=== PATIENT | female | born 1965 | race Caucasian/White ===

== ENCOUNTER 2024-12-20 09:53 | Outpatient (AMB) | payer OTHER, SELFPAY ==
[2024-12-20 10:19] VITALS: BP 120/62; PULSE 57; O2SAT 97; BMI 41.7
--- NOTE | 2024-12-20 10:19 | A.OFFVIS_ITS ---
Vital Signs 12/20/24 10:19 Height 5 ft 7 in Weight 266 lb BMI 41.7 BP 120/62 Blood Pressure Location Lt brachial Position Sitting Pulse 57 Pulse Source Pulse Oximeter Pulse Oximetry (%) 97 Oxygen Delivery Method Room Air Intake Visit Reasons: Hand Arth Intake Note: Patient presents with left and pain today. She was last seen at [facility] on 08/2022 for her knee pain. Allergies Sulfa (Sulfonamide Antibiotics) Allergy (Mild, Verified 12/20/24 10:25) Rash HPI HPI Hand Arth: Details: Left CMC pain aggravated with activity for the last few weeks. 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 She has not self medicated. If she has had a lot of activity during the day, she has pain at rest. Denies pain in right hand. [facility] Medical History (Updated 12/20/24 @ 11:52 by Luis Reynoso MD) Plantar fasciitis of right foot Heel spur delivery delivered Osteoarthritis CRISTO positive Surgical History (Updated 12/20/24 @ 10:29 by Kiana Gandhi CMA) S/P bilateral breast reduction H/O knee surgery Social History (Updated 12/20/24 @ 10:29 by Kiana Gandhi CMA) Household Members: Family Alcohol intake: never Patient Tobacco Use Status: Never used Tobacco Review of Systems Const All systems reviewed & are unremarkable except as noted in HPI and below Physical Exam Vital Signs: Last Vital Signs Pulse 57 12/20/24 10:19 BP 120/62 12/20/24 10:19 Pulse Ox 97 12/20/24 10:19 Oxygen Delivery Method Room Air 12/20/24 10:19 BMI result Body Mass Index 41.7 Const Other: General: Comfortable Skin: No lesions seen MSK: Tender left CMC with slight squaring. No effusion present. No other joints are tender in hands. 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 Assessment & Plan Assessment & Plan (1) Osteoarthritis of carpometacarpal (CMC) joint of left thumb: Comment: Clinical diagnosis. We discussed diagnosis and management. Code(s): M18.12 - Unilateral primary osteoarthritis of first carpometacarpal joint, left hand Category: Medical Qualifiers: Osteoarthritis type: primary Qualified Code(s): M18.12 - Unilateral primary osteoarthritis of first carpometacarpal joint, left hand Plan: X-ray left hand ordered Apply diclofenac gel 1% to affected area every 4-6 hours as needed I have asked her to apply ice to the affected area twice a day Baseline labs ordered Patient will call office if pain increases. I will then prescribed prescription celecoxib 200 mg twice a day until follow up appointment. CMC splint ordered. Prescription given to patient. OT ordered to improve hand strength Return to clinic in 3 months Orders: Orders XR hand LT min 3V Today M18.12 - Unilateral primary osteoarthritis of first carpometacarpal joint, left hand Aspartate Amino Transferase Today M18.12 - Unilateral primary osteoarthritis of first carpometacarpal joint, left hand Complete Blood Count Auto Diff Today M18.12 - Unilateral primary osteoarthritis of first carpometacarpal joint, left hand OT Evaluation and Treatment Today M18.12 - Unilateral primary osteoarthritis of first carpometacarpal joint, left hand Alanine Aminotransferase Today M18.12 - Unilateral primary osteoarthritis of first carpometacarpal joint, left hand Creatinine Today M18.12 - Unilateral primary osteoarthritis of first carpometacarpal joint, left hand Medications: New arm brace (Wrist Brace) As directed Dx: Left CMC osteoarthritis CMC splint 1 ea 0RF diclofenac sodium 1% (Arthritis Pain (diclofenac)) apply to affected every 4-6 hours 2 grams topical QID 100 grams 5RF Coding Level of Care Code Est Pt Level 3 (67126) Complex EM visit Add On G2211 Diagnoses Primary osteoarthritis of first carpometacarpal joint of left hand M18.12 Osteoarthritis type: primary
== END 2024-12-20 11:02 | disposition home or self-care (01) ==
PROVIDERS: PCP Family Medicine; Visit Provider Internal Medicine Rheumatology
DX: M18.12 Unilateral primary osteoarthritis of first carpometacarpal joint, left hand (principal)
CPT/HCPCS: 99213

== ENCOUNTER 2024-12-20 09:53 | Outpatient (REF) | payer OTHER, SELFPAY ==
--- OUTSIDE RECORDS SUMMARY | 2024-12-20 13:22 | XMS_ITS ---
Author Name [facility] Organization Unknown History of Medication Use Medication Directions Dispensed Refills Start Date End Date Stat us celecoxib (CeleBREX) 200 MG capsule TAKE 1 CAPSULE BY MOUTH DAILY NEEDED FOR PAIN. 10/24/2023 12/07/2023 aborted amLODIPine-valsartan (EXFORGE) 5-320 mg per tablet TAKE 1 TABLET BY MOUTH EVERY DAY 05/19/2024 11/16/2024 active gabapentin (NEURONTIN) 100 MG capsule TAKE 1 CAPSULE BY MOUTH THREE TIMES A DAY 08/09/2023 12/07/2023 aborted triamcinolone (KENALOG) 0.1 % cream Apply topically 2 (two) times a day. 03/17/2022 active Acetaminophen (TYLENOL ARTHRITIS EXT RELIEF PO) Take by mouth. 12/07/2023 aborte d amoxicillin (AMOXIL) 500 mg capsule DIRECTED 4 TABS 1 HR PRIOR DENTAL APPT 07/14/2023 active Problems Problem Status Onset Date Problem Type Date of Resolution Source Primary hypertension active EncounterDiagnosisAct CTTHNE MG Medication monitoring encounter active EncounterDiagnosisAct CTTHNE MG Immunizations Vaccine Date Source Lot Number Status Soysuper SARS-CoV-2 COVID-19, mRNA, LNP-S, preservative free 11/26/2020 CT_THSFRAN completed Soysuper SARS-CoV-2 COVID-19, mRNA, LNP-S, preservative free 03/10/2022 CT_THSFRAN completed Soysuper SARS-CoV-2 COVID-19, mRNA, LNP-S, preservative free 12/17/2020 CT_THSFRAN completed Pfizer (ages 12 & older) Biv alent, COVID-19 08/27/2023 CT_THSFRAN completed Influenza Quadravalent, 0.5m l (Fluad) 65yo and older 09/05/2023 CT_THSFRAN completed Soysuper SARS-CoV-2 COVID-19, mRNA, LNP-S, preservative free 11/22/2020 CT_THSFRAN completed
--- OUTSIDE RECORDS SUMMARY | 2024-12-20 13:22 | XMS_ITS | Clinical Summary ---
Author Organization [facility] Address [address] [place] [address] Care Team Providers Care Supervisor Instrument Mechanics Name Role Phone Erwin Dubon MD Primary Care Provider Unavailab le Allergies Active Allergy Reactions Criticality Noted Date Comments Sulfa Antibiotics Rash Medium 04/27/2017 Medications Medication Sig Dispensed Refills Start Date End Date Status amoxicillin (AMOXIL) 500 MG capsule DIRECTED 4 TABS 1 HR PRIOR DENTAL APPT 0 07/14/2023 Active carvedilol (COREG) 25 MG tablet TAKE 1 TABLET BY MOUTH TWICE A DAY 180 tablet 0 07/17/2024 Active amLODIPine-valsartan (EXFORGE) 5-320 MG per tablet TAKE 1 TABLET BY MOUTH EVERY DAY 90 tablet 0 08/17/2024 Active Active Problems No known active problems Immunizations Name Administration Dates Next Due Covid-19 (Pfizer 12+) Bivalent 08/27/2023 Covid-19 (Pfizer) Dilution Required 02/20,12/17/2020,11/26/2020, 021 Influenza Quad (Fluad) 0.5 m L >65Yrs (AIIV4) 09/05/2023 Family History Medical History Relation Name Comments No Sig Med Hx Brother Krzysztof Heart disease Father Stroke Father Dementia Mother No Sig Med Hx Sister Anna Marie No Sig Med Hx Son Shaka Relation Name Status Comments Brother Krzysztof Alive Father Alive Mother Alive Sister Anna Marie Alive Son Shaka Alive Social History Tobacco Use Types Packs/Day Years Used Date Smoking Tobacco: Never Smokeless Tobacco: Never Tobacco Cessation:Counseling Given: Not Answered Alcohol Use Standard Drinks/Week Comments No 0 (1 standard drink = 0.6 oz pur e alcohol) Sex and Gender Information Value Date Recorded Sex Assigned at Female 12/29/2018 1:21 PM EST Gender Identity Female 12/29/2018 1:21 PM EST Sexual Orientation Straight 12/29/2018 1: 21 PM EST Job Start Date Occupation Industry Not on file Not on file Not on file Last Filed Vital Signs Vital Sign Reading Time Taken Comments Blood Pressure 126/72 08/04/2024 10:00 AM EDT Pulse 58 08/04/2024 10:00 AM EDT Temperature 36.3 ??C (97.4 ??F) 12/07/2023 8:46 AM ES T Respiratory Rate 18 07/17/2022 9:36 AM EDT Oxygen Saturation 97% 08/04/2024 10:00 AM EDT Inhaled Oxygen Concentration - - Weight 122 kg (269 lb) 08/04/2024 10:00 AM EDT Height 172.7 cm (5' 8 ) 08/04/2024 10:00 AM EDT Body Mass Index 40.9 08/04/2024 10:00 AM EDT Plan of Treatment Health Maintenance Due Date Last Done Comments Breast Cancer Screening (Mammogram) 02/17/2024 02/16/2022, 01/10/2020, 12/27/2018, Additional history exists Depression Screening 03/23/2024 03/23/2023, 03/17/2022, 11/21/2020, Additional history exists Preventative Health Evaluation 03/23/2024 03/23/2023, 03/23/2023, 03/17/2022, Additional history exists COVID-19 Vaccine ( season) 2024 08/27/2023, 03/10/2022, 12/17/2020, Additional history exists Influenza Vaccine (#1) 2024 09/05/2023, 2019 DTap / Tdap / Td (2 - Td or Tdap) 01/25/2025 01/25/2015 BMI Counseling 08/04/2025 08/04/2024, 05/11/2023, 12/07/2023, Additional history exists Cervical Cancer Screening (Pap Smear) 06/05/2027 06/05/2024, 12/23/2018, 11/02/2016 Colon Cancer Screening (Colonoscopy) 12/28/2032 12/28/2022 Shingrix-Zoster Vaccine Discontinued 03/30/2019 (Decli justina) Hepatitis B Vaccines Discontinued Hepatitis C Screening Discontinued Pneumococcal Vaccine Aged Out No long er eligible based on patient's age to complete this topic RSV Ped < 20 months Aged Out No longe r eligible based on patient's age to complete this topic Care Teams Supervisor Instrument Mechanics Relationship Specialty Start Date End Date Erwin Dubon MD PCP - General Family Medicine 01/22/23
--- OUTSIDE RECORDS SUMMARY | 2024-12-20 13:22 | XMS_ITS | Encounter Summary ---
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 Name Role Phone Unavailable Primary Care Provider Unavailabl e Reason for Visit * Reason Comments Follow-up Encounter Details Date Type Department Care Team (Late st Contact Info) Description 11/28/2024 1:00 PM EST Office Visit Family Medicine [place] [address] [place] [phone] Erwin Contreras MD [address] [place], [place] [id number] Primary hypertension (Primary Dx); Medication management Social History Tobacco Use Types Packs/Day Years Used Date Smoking Tobacco: Never Smokeless Tobacco: Never Tobacco Cessation:Counseling Given: Not Answered Alcohol Use Standard Drinks/Week Comments No 0 (1 standard drink = 0.6 oz pur e alcohol) Housing Instability Answer Date Recorde d Are you worried that in the next 2 months you may not have stable housing? No 11/28/2024 Food Access & Nutrition Answer Date Rec orded Do you have access to a vari ety of food including fruits and vegetables? Yes 11/28/2024 Access to Healthcare Answer Date Record ed Within the last 3 months, ho w many times did you visit the emergency department for your medical care? 0 11/28/2024 Health Literacy Answer Date Recorded How often do you need to hav e someone help you when you read instructions, pamphlets, or other written material from your doctor or pharmacy? Never 11/28/2024 Caregiver: How often do you need to have someone help you when you read instructions, pamphlets, or other written material from your doctor or pharmacy? Not on file 11/28/2024 Financial Risk Answer Date Recorded How hard is it for you to pa y for the very basics like food, housing, medical care, and air conditioning / heating? Not very hard 11/28/2024 Transportation Answer Date Recorded Has the lack of transportati on kept you from meetings, work, or from getting things needed for daily living? No Has the lack of transportati on kept you from medical appointments or from getting medications? No 11/28/2024 Social Isolation Answer Date Recorded How often do you feel lonely or isolated from th ose around you? Never 11/28/2024 Food Risk Answer Date Recorded Within the past 12 months we worried whether our food would run out before we got money to buy more. Never true 11/28/2024 Within the past 12 months th e food we bought just didn't last and we didn't have money to get more. Never true 11/28/2024 Dependent Care Answer Date Recorded Do you need help finding or paying for care for your loved ones. For example, early childhood teacher assistant or elderly care for an older adult? No 11/28/2024 Education Answer Date Recorded Do you think completing more education or training, like finishing a GED, going to college, or learning a trade, would be helpful for you? No 11/28/2024 Employment and Income Answer Date Recor ded During the last four weeks, have you been actively looking for work? No 11/28/2024 Living Situation Answer Date Recorded What is your living situation? 0 11/28/2024 Sex and Gender Information Value Date Recorded Sex Assigned at Not on file Gender Identity Not on file Sexual Orientation Not on file Job Start Date Occupation Industry Not on file Not on file Not on file documented as of this encounter Last Filed Vital Signs Vital Sign Reading Time Taken Comments Blood Pressure 114/64 11/28/2024 12:58 PM EST Pulse 66 11/28/2024 12:58 PM EST Temperature - - Respiratory Rate - - Oxygen Saturation 97% 11/28/2024 12:58 PM EST Inhaled Oxygen Concentration - - Weight 122 kg (268 lb 8 oz) 11/28/2024 12:58 PM EST Height 172.7 cm (5' 8 ) 11/28/2024 12:58 PM EST Body Mass Index 40.83 11/28/2024 12:58 PM EST documented in this encounter Ordered Prescriptions Prescription Sig Dispensed Refills Start Date End Da te nirmatrelvir-ritonavir (Paxlovid) 300 mg (150 mg x 2)-100 mg tablet therapy pack Take 3 tablets by mouth every 12 (twelve) hours for 5 days. Take number of ordered nirmatrelvir (300 mg = 2 tablets) and ritonavir (100 mg = 1 tablet) tablets at the same time. 30 tablet 11/30/2024 12/05/2024 documented in this encounter Progress Notes * Erwin Contreras MD - 11/28/2024 1:00 PM ESTAddended by: ERWIN CONTRERAS on: 11/30/2024 05:15 PM Modules accepted: Orders * Erwin Contreras MD - 11/28/2024 1:00 PM EST CHIEF COMPLAINT: Chief Complaint Patient presents with Follow-up ?? SUBJECTIVE: Tori Yuan is a 59 y.o. female here today for follow up. Checks BP and 120- 132/80's is the norm. No c/p, sob, n/v, headaches, cough, edema. No SI, HI, voices. Diet is stable. No exercise. Working at [employer]. HISTORY OF PRESENT ILLNESS: PAST MEDICAL HISTORY: Past Medical History: Diagnosis Date Hypertension DX:Hypertension ? SURGICAL HISTORY: Past Surgical History: Procedure Laterality Date BREAST SURGERY 1999 PROCEDURE:REDUCTION MAMMAPLASTY EYE SURGERY Right 01/2014 PROCEDURE:EYE SURGERY;COMMENT:Cataract HYSTERECTOMY PROCEDURE:HYSTERECTOMY;COMMENT:at age 40 JOINT REPLACEMENT PROCEDURE:JOINT REPLACEMENT ? SOCIAL HISTORY: Social History Tobacco Use Smoking status: Never Smokeless tobacco: Never Substance Use Topics Alcohol use: No ? FAMILY HISTORY: Family History Problem Relation Name Age of Onset Dementia Mother Heart disease Father Stroke Father No Known Problems Sister Anna Marie No Known Problems Brother Krzysztof No Known Problems Son Shaka ? MEDICATIONS: Current Outpatient Medications Medication Sig Dispense Refill amLODIPine-valsartan (EXFORGE) 5-320 mg per tablet TAKE 1 TABLET BY MOUTH EVERY DAY 90 tablet 1 amoxicillin (AMOXIL) 500 mg capsule DIRECTED 4 TABS 1 HR PRIOR DENTAL APPT carvediloL (COREG) 25 mg tablet TAKE 1 TABLET BY MOUTH TWICE A DAY 180 tablet 1 triamcinolone (KENALOG) 0.1 % cream Apply topically 2 (two) times a day. No current facility-administered medications for this visit. ? ALLERGIES: Allergies Allergen Reactions Sulfa (Sulfonamide Antibiotics) Rash REVIEW OF SYMTOMS: Review of Systems Constitutional: Negative for activity change, appetite change, diaphoresis, fatigue and fever. HENT: Negative. Negative for congestion, sinus pressure, sinus pain and sore throat. Eyes: Negative. Respiratory: Negative for cough, wheezing and stridor. Cardiovascular: Negative for chest pain, palpitations and leg swelling. Gastrointestinal: Negative for abdominal distention, abdominal pain, constipation, diarrhea, nauseaand vomiting. Endocrine: Negative for polydipsia and polyphagia. Genitourinary: Negative for dysuria, frequency and urgency. Musculoskeletal: Negative for arthralgias, gait problem and myalgias. Allergic/Immunologic: Negative. Neurological: Negative for dizziness, tremors, syncope, weakness, numbness and headaches. Hematological: Negative. Psychiatric/Behavioral: Negative. Negative for agitation, confusion, dysphoric mood, sleep disturbance and suicidal ideas. The patient is not nervous/anxious. VITALS SIGNS: Vitals: 11/28/24 1258 BP: 114/64 BP Cuff Size: Adult Pulse: 66 SpO2: 97% Weight: 122 kg (268 lb 8 oz) Height: 1.727 m (68 ) Body mass index is 40.83 kg/m??. ? Physical Exam Constitutional: General: She is not in acute distress. Appearance: Normal appearance. She is not ill-appearing, toxic-appearing or diaphoretic. HENT: Head: Normocephalic. Right Ear: Tympanic membrane normal. Left Ear: Tympanic membrane normal. Nose: Nose normal. Mouth/Throat: Pharynx: No oropharyngeal exudate. Eyes: Extraocular Movements: Extraocular movements intact. Conjunctiva/sclera: Conjunctivae normal. Pupils: Pupils are equal, round, and reactive to light. Neck: Vascular: No carotid bruit. Cardiovascular: Rate and Rhythm: Regular rhythm. Pulses: Normal pulses. Heart sounds: Normal heart sounds. No murmur heard. No gallop. Pulmonary: Effort: Pulmonary effort is normal. No respiratory distress. Breath sounds: Normal breath sounds. No stridor. No wheezing, rhonchi or rales. Chest: Chest wall: No tenderness. Abdominal: General: There is no distension. Palpations: There is no mass. Tenderness: There is no abdominal tenderness. There is no right CVA tenderness, left CVA tenderness, guarding or rebound. Hernia: No hernia is present. Musculoskeletal: General: No swelling, tenderness, deformity or signs of injury. Cervical back: Normal range of motion. No rigidity or tenderness. Right lower leg: No edema. Left lower leg: No edema. Lymphadenopathy: Cervical: No cervical adenopathy. Skin: General: Skin is warm. Capillary Refill: Capillary refill takes less than 2 seconds. Coloration: Skin is not jaundiced or pale. Findings: No bruising, erythema, lesion or rash. Neurological: General: No focal deficit present. Mental Status: She is alert and oriented to person, place, and time. Cranial Nerves: No cranial nerve deficit. Sensory: No sensory deficit. Motor: No weakness. Coordination: Coordination normal. Gait: Gait normal. Deep Tendon Reflexes: Reflexes normal. Psychiatric: Mood and Affect: Mood normal. Behavior: Behavior normal. Thought Content: Thought content normal. Judgment: Judgment normal. ? FALL RISK: Failed to redirect to the Timeline version of the [email or web address] SmartLink. DEPRESSION SCREENING: Failed to redirect to the Timeline version of the [email or web address] SmartLink. ? ENCOUNTER ORDERS: @ENCMEDS@ No orders of the defined types were placed in this encounter. ? ASSESSMENT/PLAN: Encounter Diagnosis: 1. Primary hypertension 2. Medication management ??? Refills when due Diet and exercise and weight control CALL 11/30. Had sx since 11/29. Tested this AM and is POS for COVID. Had Paxlovid with good results. Out of work at this time. Understands quarantine. Rx Paxlovid now. OTC SxTx and call us with progress on wednesday documented in this encounter Plan of Treatment Upcoming Encounters Date Type Department Care Team (Late st Contact Info) Description 04/03/2025 9:15 AM EDT Office Visit Family Medicine [place] [address] [facility] [address] [place], [place] [phone] Erwin Contreras MD [address] [place], [place] [address] documented as of this encounter Visit Diagnoses Diagnosis Primary hypertension- Primary Unspecified essential hypertension Medication management documented in this encounter
--- OUTSIDE RECORDS SUMMARY | 2024-12-20 13:22 | XMS_ITS | Clinical Summary ---
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 03/17/2022 Active carvediloL (COREG) 25 mg tabletIndications :Hypertension, unspecified type TAKE 1 TABLET BY MOUTH TWICE A DAY 180 tablet 1 10/30/2024 Active amLODIPine-valsar suarez (EXFORGE) 5-320 mg per tabletIndications :Hypertension, unspecified type TAKE 1 TABLET BY MOUTH EVERY DAY 90 tablet 1 11/16/2024 Active nirmatrelvir-donna navir (Paxlovid) 300 mg (150 mg x 2)-100 mg tablet therapy pack Take 3 tablets by mouth every 12 (twelve) hours for 5 days. Take number of ordered nirmatrelvir (300 mg = 2 tablets) and ritonavir (100 mg = 1 tablet) tablets at the same time. 30 tablet 11/30/2024 12/05/2024 Encounters Date Type Department Care Team Description 11/30/2024 Telephone Family Medicine [place] [address] [facility] [address] [place] [phone] Erwin Dubon MD documenting 11/28/2024 1:00 PM EST Office Visit Family Medicine [place] [address] [facility] [address] [place] [phone] Erwin Dubon MD Primary hypertension (Primary Dx); Medication management 10/18/2024 Telephone Family Medicine [place] [address] [facility] [address] [place] [phone] Erwin Dubon MD from Last 3 Months Immunizations Name Administration Dates Next Due Influenza Quadravalent, 0.5m l (Fluad) 65yo and older 09/05/2023 Influenza trivalent, 0.5mL, preservative free (Fluarix; FluLaval; Fluzone) ages 6mo and older (Afluria) 3 years and older 09/05/2024 Pfizer (ages 12 & older) Biv alent, COVID-19 08/27/2023 Pfizer SARS-CoV-2 COVID-19, mRNA, LNP-S, preservative free 03/10/2022,12/17/2020,11/26/2020,2020 Surgical History Surgery Date Site/Laterality Comments HYSTERECTOMY PROCEDURE:HYSTERECTOMY;COMMENT:at age 40 EYE SURGERY 01/2014 Right PROCEDURE:EYE SURGERY;COMMENT:Cataract BREAST SURGERY 1999 PROCEDURE:REDUCTION MAMMAPLASTY JOINT REPLACEMENT PROCEDURE:JOINT REPLACEMENT Medical History Medical History Date Comments Hypertension DX:Hypertension Family History Medical History Relation Name Comments No Known Problems Brother Krzysztof Heart disease Father Stroke Father Dementia Mother No Known Problems Sister Anna Marie No Known Problems Son Shaka Relation Name Status Comments Brother [...] care for your loved ones. For example, child abuse worker or elderly care for an older adult? [...] file Not on file Not on file Obstetrics History Last Filed Vital Signs Vital Sign Reading [...] Mass Index 40.83 11/28/2024 12:58 PM EST Plan of Treatment Upcoming Encounters Date Type Department Care Team (Late st Contact Info) Description 04/03/2025 9:15 AM EDT Office Visit Family Medicine [place] [address] [facility] [address] [place] [phone] Erwin Dubon MD [address] [facility] [address] [place] [address] Health Maintenance Due Date Last Done Comments DTaP,Tdap,and Td Vaccines (1 - Tdap) 1984 Hypertension/CHF/CAD Annual BMP Blood Test 12/26/2023 Breast Cancer Screening 11/23/2025 11/23/2023 Depression Screening 11/28/2025 11/28/2024, 03/23/20 23 Social Influencers of Health Screening 11/28/2025 11/28/2024 Cervical Cancer Screening: Pap Smear 06/05/2027 06/05/2024, 12/23/2018 Cholesterol Screening (Lipid Panel) 06/23/2029 06/23/2024 Colorectal Cancer Screening: Colonoscopy 12/28/2032 12/28/2022 RSV Immunization Patients 60+ Years Old (1 - 1-dose 75+ series) 2040 COVID-19 Vaccine Discontinued 08/27/2023, , 12/17/2020, Additional history exists Influenza Vaccine Completed 09/05/2024, 09/05/2023 HIB Vaccines Aged Out No longer eligi ble based on patient's age to complete this topic HIV Screening Discontinued HPV Vaccines Aged Out No longer eligi ble based on patient's age to complete this topic Hepatitis A Vaccines Aged Out No long er eligible based on patient's age to complete this topic Hepatitis B Vaccines Discontinued Hepatitis C Screening Discontinued IPV Vaccines Aged Out No longer eligi ble based on patient's age to complete this topic MMR Vaccines Aged Out No longer eligi ble based on patient's age to complete this topic Meningococcal ACWY Vaccine Aged Out N o longer eligible based on patient's age to complete this topic Pneumococcal Vaccine: Pediatrics (0 to 5 Years) and At-Risk Patients (6 to 64 Years) Aged Out No longer eligible based on patient's age to complete this topic RSV Immunization Patients Under 20 months Aged Out No longer eligible based on patient's age to complete this topic Varicella Vaccines Aged Out No longer eligible based on patient's age to complete this topic Zoster Vaccines Discontinued Procedures Procedure Name Priority Date/Time Associated Diagnosis Comments DEPRESSION SCREENING Routine 03/23/2023 COLONOSCOPY Routine 12/28/2022 PAP SMEAR Routine 12/23/2018 from Last 3 Months or Most Recently Relevant to Health Maintenance Results * Depression Screening (03/23/2023) Depression Screening abstracted Historical Provider [employer]INTENANC E * Colonoscopy (12/28/2022) Colonoscopy no interpretation , abstracted Anatomical Region Laterality Modality Other Historical Provider [employer]INTENANC [employer] * Pap Smear (12/23/2018) Pap smear no interpretation , abstracted [facility] Provider [employer] MAINTENANC E from Last 3 Months or Most Recently Relevant to Health Maintenance
--- OUTSIDE RECORDS SUMMARY | 2024-12-20 13:22 | XMS_ITS | Encounter Summary ---
Author Organization [facility] Address [address] [place] [address] Care Team Providers Care [employer] Name Role Phone Unavailable Primary Care Provider Unavailabl e Reason for Visit * Reason Onset Date Comments documenting 11/30/2024 Encounter Details Date Type Department Care Team (Late st Contact Info) Description 11/30/2024 Telephone Family Medicine [place] [address] [facility] [address] [place] [phone] Erwin Dubon MD [address] [facility] [address] [place], [place] [phone] documenting Social History Tobacco Use Types Packs/Day Years Used Date Smoking Tobacco: Never Smokeless Tobacco: Never Alcohol Use Standard Drinks/Week Comments No 0 [...] for your loved ones. For example, child care counselor or elderly care for an older adult? [...] on file documented as of this encounter Plan of Treatment Upcoming Encounters Date Type Department Care Team (Late st Contact Info) Description 04/03/2025 9:15 AM EDT Office Visit Family Medicine [place] [address] [facility] [address] [place] [phone] Erwin Dubon MD [address] [facility] [address] [place] [address] documented as of this encounter Visit Diagnoses Not on filedocumented in this encounter
[2024-12-20 17:41] LABS: MANUAL DIFF FLAG NO
[2024-12-20 18:05] LABS: Alanine Aminotransferase 30 U/L (0-31); Aspartate Amino Transferase 26 U/L (5-31); Estimated Glomerular Filt Rate > 60
[2024-12-20 18:21] LABS: Basophils Percent Auto 0.5 % (0-2); Eosinophils Absolute Auto 0.2 X10*3/uL (0.0-0.4); Eosinophils Percent Auto 2.3 % (0-4); Hematocrit 38.6 % (37.0-47.0); Hemoglobin 13.1 g/dl (12.0-16.0); Imm Gran Abs Auto 0.04 X10*3/uL (0.00-0.03); Imm Gran Pct Auto 0.6 % (0.0-0.4); Lymphocytes Absolute Auto 1.1 X10*3/uL (1.2-4.9); Lymphocytes Percent Auto 15.8 % (20-40); Mean Corpuscular HGB Conc 33.9 g/dl (31.0-35.0); Mean Corpuscular Hemoglobin 27.9 pg (27.0-33.0); Mean Corpuscular Volume 82.1 fL (80.0-98.0); Monocytes Absolute Auto 0.3 X10*3/uL (0.1-1.2); Monocytes Percent Auto 4.7 % (2-11); Neutrophils Absolute Auto 5.1 x10*3/uL (2.0-8.3); Neutrophils Percent Auto 76.1 % (45-73); Platelet Count 196 X10*3/uL (160-400); Red Cell Distribution Width 14.2 % (11.0-16.0); White Blood Count 6.6 X10*3/uL (4.8-10.8)
== END 2024-12-20 09:54 | disposition home or self-care (01) ==
LOC: HO.HKASLDS 09:53
PROVIDERS: PCP Family Medicine; Visit Provider Internal Medicine Rheumatology
DX: M18.12 Unilateral primary osteoarthritis of first carpometacarpal joint, left hand (principal)
CPT/HCPCS: 36415; 82565; 84450; 84460; 85025